=== PATIENT | male | born 1995 | race Caucasian/White ===

== ENCOUNTER 2023-03-30 18:46 | Emergency (ER) | payer SELFPAY ==
[~2023-03-30] VITALS: Ht 182.9 cm; Wt 72.7 kg
[~2023-03-30 18:46] MED LIST: EXCEDRIN; METH27TA19; SERT50TA19
[2023-03-30] MEDS ORDERED: CEPH-510 PO (19:36)
[2023-03-30 19:45] VITALS: BP 120/72
[2023-03-30] MEDS ORDERED: TETANUS-DIPTH-ACEL PERTUSSIS 0.5ML SYR Tdap IM ONE (19:45)
== END 2023-03-30 20:04 | disposition home or self-care (01) ==
LOC: ER 18:46
DX: S61.411A Laceration without foreign body of right hand, initial encounter (principal); Z79.899 Other long term (current) drug therapy; X58.XXXA Exposure to other specified factors, initial encounter; Y93.89 Activity, other specified; Y92.89 Other specified places as the place of occurrence of the external cause; Y99.8 Other external cause status
CPT/HCPCS: 12001; 90471; 90715

== ENCOUNTER 2024-09-12 07:23 | Emergency (ER) | payer MEDICAID, OTHER ==
[~2024-09-12] VITALS: Ht 180.3 cm; Wt 68.0 kg
[~2024-09-12 07:23] MED LIST changes: +CEPH-510 PO; +SERT-206; -SERT50TA19
[2024-09-12 07:55] VITALS: BP 135/98; PULSE 101; RESP 18; TEMP 97.7; O2SAT 97
[2024-09-12] MEDS ORDERED: IBUP-1454 PO (08:26)
[2024-09-12] MEDS ORDERED: CEPH500C PO (08:26)
== END 2024-09-12 08:33 | disposition home or self-care (01) ==
LOC: ER 07:23
DX: S90.422A Blister (nonthermal), left great toe, initial encounter (principal); Z79.899 Other long term (current) drug therapy; X58.XXXA Exposure to other specified factors, initial encounter; Y93.89 Activity, other specified; Y92.89 Other specified places as the place of occurrence of the external cause; Y99.8 Other external cause status
CPT/HCPCS: 10140; 10160; 73660

== ENCOUNTER 2025-04-19 20:48 | Inpatient (IN) | payer OTHER ==
[~2025-04-19] VITALS: Ht 180.3 cm; Wt 63.5 kg
[~2025-04-19 20:48] MED LIST changes: +CEPH500C PO; +IBUP-1454 PO
--- NOTE | 2025-04-19 21:20 | ED.PDOC ---
Altered Mental Status HPI Comments 29 y/o M is BIBA for substance overdose. Per EMS report, bystanders called after patient began becoming altered, characterized by decrease responsiveness, after smoking fentanyl with a methamphetamine pipe, earlier, this evening. On scene, patient was found with bystanders performing CPR on him. He was noted to have had agonal respirations and weak pulses prior to being given 4mg Narcan IN by EMS, with positive response. Upon arrival to ED, patient is reported to be alert and back to his usual baseline, with no associated symptoms endorsed. Chief Complaint: Overdose Time Seen by MD: 20:50 Primary Care Provider: none Reviewed Notes: Nurses Notes, Case Management Associate Notes, Medications, Allergies Allergies: Coded Allergies: NO KNOWN ALLERGIES (Unverified , 10/01/10) Home Meds Active Scripts Cephalexin Monohydrate (Cephalexin) 500 Mg Cap, 1 CAP PO BID, #21 CAP Prov:STARR DUBON 09/12/24 Ibuprofen (Ibuprofen) 600 Mg Tab, 1 TAB PO TID, #24 TAB Prov:STARR DUBON 09/12/24 Cephalexin ( Keflex 500) 500 Mg Cap, 1 CAP PO TID for 5 Days, #15 CAP 0 Refills Prov:KRISTINE BRANNON 03/30/23 Reported Medications [Rrdxbhkrjqifvor67 Mg] (METHYLPHENIDATE HCL ER) 27 MG TAB No Conflict Check, MG 04/05/13 [Sertraline Hcl50 Mg] (Sertraline Hcl) 50 MG TAB No Conflict Check, MG 04/05/13 [Excedrin] No Conflict Check 10/01/10 Information Source: Patient, Emergency Med Personnel Mode of Arrival: EMS Severity: Moderate Timing: Minutes Duration: Minutes Prehospital treatment: 12 Lead EKG, Radiator Repairer, Other (4mg narcan IN) Past Medical History PAST MEDICAL HISTORY: Denies Surgical History: Denies all surgeries Family History Family History: Reviewed,noncontributory to illness Social History Smoker: Non-Smoker Alcohol: Occasionally Drugs: Methamphetamine, Other (fentanyl) Lives In: Home All Other Systems: Reviewed and Negative (Comprehensive systems review obtained and negative except for what is stated in the HPI.) Physical Exam General Appearance: No Apparent Distress, Normal HEENT: Normal ENT Inspection, Pharynx Normal, TMs Normal Neck: Full Range of Motion, Non-Tender, Normal, Normal Inspection Respiratory: Chest Non-Tender, Lungs Clear, No Accessory Muscle Use, No Respiratory Distress, Normal Breath Sounds Cardiovascular: No Edema, No JVD, No Murmur, No Gallop, Normal Peripheral Pulses, Regular Rate/Rhythm Breast Exam: Deferred Gastrointestinal: No Organomegaly, Non Tender, No Pulsatile Mass, Normal Bowel Sounds, Soft Genitalia: Deferred Pelvic: Deferred Rectal: Deferred Extremities: No calf tenderness, Normal capillary refill, Normal inspection, Normal range of motion, Non-tender, No pedal edema Musculoskeletal : Apperance: Normal Neurologic: Alert, rn emergency II-XII nml as Tested, No Motor Deficits, Normal Affect, Normal Mood, No Sensory Deficits Cerebellar Function: Normal Reflexes: Normal Skin: Dry, Normal Color, Warm Lymphatic: No Adenopathy EKG EKG : Pulse Rate (adult): 114 [place]: Normal Cardiac Rhythm: ST Block: None Hypertrophy: None ST: Normal Was a procedure done? Was a procedure done?: No Differential Diagnosis (ALOC) Differential Diagnosis: Encephalopathy, Hypoxemia, Drug Overdose, ETOH Intoxication X-Ray, Labs, Meds, VS Vital Signs Date Time Temp Pulse Resp B/P (MAP) Pulse Ox O2 Delivery O2 Flow Rate FiO2 04/20/25 00:27 110 04/19/25 22:00 98.1 88 18 114/69 (84) 99 98.1 04/19/25 21:48 98.1 104 18 126/78 (94) 96 98.1 04/19/25 21:48 108 18 96 Room Air* 0 21 04/19/25 21:20 114 04/19/25 20:54 97.0 124 20 123/86 (98) 100 97.0 04/19/25 20:51 114 Lab Test 04/19/25 23:58 Range/Units White Blood Count 9.8 4.4-10.8 10^3/uL Red Blood Count 4.36 L 4.5-5.90 10^6/uL Hemoglobin 13.5 13.5-17.5 g/dL Hematocrit 38.6 L 41.0-53.0 % Mean Corpuscular Volume 88.6 80.0-100.0 fL Mean Corpuscular Hemoglobin 31.0 28.0-32.0 pg Mean Corpuscular Hemoglobin Concent 34.9 32.0-36.0 g/dL Red Cell Distribution Width 13.8 11.8-14.3 % Platelet Count 246 140-450 10^3/uL Mean Platelet Volume 7.8 6.9-10.8 fL Neutrophils (%) (Auto) 77.7 37.0-80.0 % Lymphocytes (%) (Auto) 12.1 10.0-50.0 % Monocytes (%) (Auto) 8.9 0.0-12.0 % Eosinophils (%) (Auto) 1.0 0.0-7.0 % Basophils (%) (Auto) 0.3 0.0-2.0 % Neutrophils # (Auto) 7.6 1.6-8.6 10 ^3/uL Lymphocytes # (Auto) 1.2 0.4-5.4 10 ^3/uL Monocytes # (Auto) 0.9 0-1.3 10 ^3/uL Eosinophils # (Auto) 0.1 0-0.8 10 ^3/uL Basophils # (Auto) 0 0-0.2 10 ^3/uL Nucleated Red Blood Cells 0.0 % Sodium Level 140 136-145 mmol/L Potassium Level 4.2 3.5-5.1 mmol/L Chloride Level 105 98-107 mmol/L Carbon Dioxide Level 30 20-31 mmol/L Anion Gap 5 5-15 Blood Urea Nitrogen 10 9-23 mg/dL Creatinine 1.05 0.700-1.30 mg/dL Glomerular Filtration Rate Calc 100 >90 mL/min BUN/Creatinine Ratio 9.5 L 10.0-20.0 Serum Glucose 119 H 74-106 mg/dL Calcium Level 9.6 8.7-10.4 mg/dL Troponin I High Sensitivity 176 *H </=54 ng/L Time of 1ST Reevaluation: 21:20 Reevaluation 1ST: Unchanged Patient Education/Counseling: Other (observation) Family Education/Counseling: No Family Present Additional Information Previous visits reviewed: September 12, 2024 The following tests were ordered, and results were reviewed by me: EKG Additional Information was gathered from interviewing the following independent historians: EMS I reviewed and agreed with the following test results read by other providers: N /A I discussed treatment and results with medical personnel and: patient Departure 1 Departure Time of Disposition: 00:58 (You presented with likely trigger for tests received CPR troponin is elevated. We will admit patient for further workup) Impression: Primary Impression: Drug overdose Qualified Codes: T50.901A - Poisoning by unspecified drugs, medicaments and biological substances, accidental (unintentional), initial encounter Additional Impression: Elevated troponin Disposition: ADMITTED INPATIENT Admit to: Med Surg Condition: Serious Critical Care Note Critical Care Time?: Yes Critical care comment: Overdose Authorized and Performed by: Gurmeet Diallo MD Total critical care time: Approximately 38 minutes Due to a high probability of clinically significant, life threatening deterioration, the patient required my highest level of preparedness to intervene emergently and I personally spent this critical care time directly and personally managing the patient. This critical care time included obtaining a history; examining the patient; pulse oximetry; ordering and review of studies; arranging urgent treatment with development of a management plan; evaluation of patient's response to treatment; frequent reassessment; and, discussions with other providers. This critical care time was performed to assess and manage the high probability of imminent, life-threatening deterioration that could result in multi-organ failure. It was exclusive of separately billable procedures and treating other patients and teaching time. Please see my other sections and the rest of the note for further information on patient assessment and treatment. Stability Stability form required: No Heart Score Heart Score: Heart Score Response (Comments) Value History N/A 0 EKG N/A 0 Age N/A 0 Risk Factors N/A 0 Troponin N/A 0 Total 0 I personally scribed for GURMEET DIALLO MD ([email or web address]) on 04/19/25 at 21:20. Electronically submitted by Stan Arreguin ([email or web address]). GURMEET DIALLO MD Apr 19, 2025 21:20
[2025-04-19 21:48] VITALS: PULSE 108; RESP 18; O2SAT 96
[2025-04-20 00:24] LABS: Chloride 105 mmol/L (98-107); Potassium 4.2 mmol/L (3.5-5.1); Sodium 140 mmol/L (136-145)
[2025-04-20 00:25] LABS: Anion Gap 5 (5-15); Calcium 9.6 mg/dL (8.7-10.4); Carbon Dioxide 30 mmol/L (20-31)
[2025-04-20 00:30] LABS: BUN/Creatinine Ratio 9.5 (10.0-20.0); Blood Urea Nitrogen 10 mg/dL (9-23); Glucose 119 mg/dL (74-106)
[2025-04-20 00:34] LABS: Basophils # (auto) 0 10 ^3/uL (0-0.2); Basophils % (auto) 0.3 % (0.0-2.0); Eosinophils # (auto) 0.1 10 ^3/uL (0-0.8); Hematocrit 38.6 % (41.0-53.0); Hemoglobin 13.5 g/dL (13.5-17.5); Lymphocytes # (auto) 1.2 10 ^3/uL (0.4-5.4); Lymphocytes % (auto) 12.1 % (10.0-50.0); Mean Corpuscular Hgb Conc. 34.9 g/dL (32.0-36.0); Mean Corpuscular Volume 88.6 fL (80.0-100.0); Monocytes # (auto) 0.9 10 ^3/uL (0-1.3); Monocytes % (auto) 8.9 % (0.0-12.0); Neutrophils # (auto) 7.6 10 ^3/uL (1.6-8.6); Neutrophils % (auto) 77.7 % (37.0-80.0); Platelet Count (auto) 246 10^3/uL (140-450); Red Blood Cells 4.36 10^6/uL (4.5-5.90); Red Cell Distribution Width 13.8 % (11.8-14.3); White Blood Cell 9.8 10^3/uL (4.4-10.8)
--- NOTE | 2025-04-20 00:50 | DVH ---
CHEST RADIOGRAPH Indication: overdose, s/p cpr Technique: Single frontal view of the chest was obtained COMPARISON: None FINDINGS: Lines and Tubes: None Lungs: Clear Pleura: No effusion. No pneumothorax. Cardiomediastinal contours: Unremarkable Bones: Unremarkable IMPRESSION: 1. No acute disease.
[2025-04-20] MEDS ORDERED: NITROGLYCERIN 0.4 MG SL TAB SL PRN (03:00)
[2025-04-20] MEDS ORDERED: ACETAMINOPHEN 325 MG TAB PO PRN (03:00)
[2025-04-20] MEDS ORDERED: MORPHINE SULFATE INJ 2 MG/ml SYRG IV PRN (03:00)
[2025-04-20] MEDS ORDERED: ONDANSETRON HCL 4 MG/2 ML VIAL IV PRN (03:00)
--- NOTE | 2025-04-20 04:33 | DVHHP2 ---
History of Present Illness Reason for Visit: Altered mental status History of Present Illness 29-year-old male presents for evaluation of altered mental status. Patient became unresponsive after smoking methamphetamine with fentanyl. CPR was started by bystanders. Patient is currently sit and lethargic. Denies chest pain or palpitations. No shortness a breath. Past Medical History Denies Past Surgical History Denies Family History Noncontributory Smoke: No ALCOHOL: occassional Drugs: Other (Methamphetamine, fentanyl) Review of Systems Review of Systems Review of systems are currently negative otherwise dressing HPI. Allergies: Coded Allergies: NO KNOWN ALLERGIES (Unverified , 10/01/10) Medications Current Medications Medications Dose Ordered Sig/Christiano Route Start Time Stop Time Status Last Admin Dose Admin Ondansetron HCl 4 mg Q4HP PRN IV 04/20/25 03:00 Acetaminophen 650 mg Q6HP PRN PO 04/20/25 03:00 Nitroglycerin 0.4 mg Q5MINP PRN SL 04/20/25 03:00 Morphine Sulfate 2 mg Q30M PRN IV 04/20/25 03:00 Exam Vital Signs Vital Signs Date Time Temp Pulse Resp B/P (MAP) Pulse Ox O2 Delivery O2 Flow Rate FiO2 04/20/25 04:00 83 04/20/25 03:09 98.2 18 120/79 (93) 96 98.2 04/19/25 21:48 Room Air* 0 21 Exam Gen: 29-year-old male in no apparent distress. Skin: Warm, dry, normal color and texture, no rash. HEENT: Normocephalic atraumatic, mucous membranes moist and pink. Neck: Cervical and supraclavicular nodes normal without enlargement, trachea is midline, thyroid gland is normal without masses. Pulmonary: Clear to auscultation and percussion bilaterally. Cardiac: Regular rate and rhythm. No murmur Abdomen: Soft, nontender, nondistended, bowel sounds present all 4 quadrants, no guarding, no rigidity, no organomegaly. Extremities: No cyanosis, clubbing, no edema Neuro: Cranial nerves II through XII grossly intact, normal affect and speech, no focal motor deficits. Labs/Xrays ORDERING PHYSICIAN: GURMEET VAZQUEZ MD PROCEDURE(s): CXRP - CHEST PORTABLE REASON: overdose, s/p cpr ORDER NUMBER(s): [id number], ACCESSION NUMBER(s): [id number] CHEST RADIOGRAPH Indication: overdose, s/p cpr Technique: Single frontal view of the chest was obtained COMPARISON: None FINDINGS: Lines and Tubes: None Lungs: Clear Pleura: No effusion. No pneumothorax. Cardiomediastinal contours: Unremarkable Bones: Unremarkable IMPRESSION: 1. No acute disease. Labs Test 04/20/25 02:50 04/19/25 23:58 Range/Units Troponin I High Sensitivity 223 *H </=54 ng/L White Blood Count 9.8 4.4-10.8 10^3/uL Red Blood Count 4.36 L 4.5-5.90 10^6/uL Hemoglobin 13.5 13.5-17.5 g/dL Hematocrit 38.6 L 41.0-53.0 % Mean Corpuscular Volume 88.6 80.0-100.0 fL Mean Corpuscular Hemoglobin 31.0 28.0-32.0 pg Mean Corpuscular Hemoglobin Concent 34.9 32.0-36.0 g/dL Red Cell Distribution Width 13.8 11.8-14.3 % Platelet Count 246 140-450 10^3/uL Mean Platelet Volume 7.8 6.9-10.8 fL Neutrophils (%) (Auto) 77.7 37.0-80.0 % Lymphocytes (%) (Auto) 12.1 10.0-50.0 % Monocytes (%) (Auto) 8.9 0.0-12.0 % Eosinophils (%) (Auto) 1.0 0.0-7.0 % Basophils (%) (Auto) 0.3 0.0-2.0 % Neutrophils # (Auto) 7.6 1.6-8.6 10 ^3/uL Lymphocytes # (Auto) 1.2 0.4-5.4 10 ^3/uL Monocytes # (Auto) 0.9 0-1.3 10 ^3/uL Eosinophils # (Auto) 0.1 0-0.8 10 ^3/uL Basophils # (Auto) 0 0-0.2 10 ^3/uL Nucleated Red Blood Cells 0.0 % Sodium Level 140 136-145 mmol/L Potassium Level 4.2 3.5-5.1 mmol/L Chloride Level 105 98-107 mmol/L Carbon Dioxide Level 30 20-31 mmol/L Anion Gap 5 5-15 Blood Urea Nitrogen 10 9-23 mg/dL Creatinine 1.05 0.700-1.30 mg/dL Glomerular Filtration Rate Calc 100 >90 mL/min BUN/Creatinine Ratio 9.5 L 10.0-20.0 Serum Glucose 119 H 74-106 mg/dL Calcium Level 9.6 8.7-10.4 mg/dL Assessment/Plan Assessment/Plan Assessment Toxic encephalopathy Drug overdose Elevated troponin, possible demand ischemia Plan Admit the patient to telemetry to the hospitalist Cardiology consultation Continue treatment per orders. Plan discussed with: Patient My Orders Orders - CYRIL ESTRELLA Procedure Category Date Status Time Drug Screen LAB 04/20/25 Logged 02:47 Regular Diet DIET 04/20/25 Transmitted Breakfast Basic Metabolic Panel LAB 04/21/25 Verified 04:00 Admit ADMIT 04/20/25 Transmitted 02:51 Ondansetron Hcl PHA 04/20/25 In Process (Zofran) 03:00 Condition: Stable YESSI 04/20/25 In Process 02:51 Acetaminophen Tablet PHA 04/20/25 In Process (Tylenol Tablet) 03:00 Bedrest With Bathroom YESSI 04/20/25 In Process Privileg 02:51 Nitroglycerin PHA 04/20/25 In Process Sublingual (Ntrostat 03:00 Morphine Sulfate PHA 04/20/25 In Process Injection 03:00 Stat Ekg For Chest YESSI 04/20/25 In Process Pain 02:51 Notify Md Of Changes YESSI 04/20/25 In Process From Base 02:51 Music Researcher For YESSI 04/20/25 In Process 24 Hours 02:51 Emergency Dysrhythmia YESSI 04/20/25 In Process Protocol 02:51 Rhythm Strips Once YESSI 04/20/25 In Process Every Shift 02:51 Oxygen By Nasal RT 04/20/25 Transmitted Cannula 02:51 Date of Service: Apr 20, 2025 Billing Provider: CYRIL ESTRELLA Common Visit Codes: [id number] INP/OBS CARE (HIGH) CYRIL ESTRELLA Apr 20, 2025 04:33
[2025-04-20 08:00] VITALS: PULSE 99; RESP 20; O2SAT 96
[2025-04-20] MEDS: ASPirin 81 mg TAB PO SCH (09:44)
[2025-04-20 09:48] LABS: Magnesium 1.7 mg/dL (1.6-2.6)
[2025-04-20 09:50] LABS: Blood Alcohol < 3.0 mg/dL (<10)
[2025-04-20 10:07] LABS: Salicylate < 3.0 mg/dL (-30)
--- NOTE | 2025-04-20 11:00 | DVHINCON2 ---
Date Seen: Apr 20, 2025 Referring Physician ZAK Barron Reason for Consultation Elevated trop History of Present Illness This is a 29-year-old man who presented to the emergency room via EMS with a chief complaint of drug overdose. At time of assessment the patient was found A&O x4 in company of friend who witnessed the event and mother. Per friend, he had just come back from the bathroom and found the patient slumped over standing by a car with obvious respiratory depression, subsequent agonal breathing, cyanosis, and respiratory arrest for which the patient called 911. At that time, he was instructed to initiate CPR which was delivered in between 2-5 min. Upon EMS arrival he was medicated with Narcan 4 mg with therapeutic response. Per patient, he consumed fentanyl x 3d straight and daily methamphetamines for two months. The patient denies any suicidal ideation. C/o of chest wall pain which is reproducible upon palpation. He underwent a 12 lead electrocardiogram revealing a sinus tachycardia rhythm at 114 bpm. Troponin levels peaked at 223 ng/L. Significant medical history includes ADHD, intermittent use of methamphetamine since 18 y.o., occasional cannabinoid and alcohol use. Past Medical History Past medical history reviewed. No other significant than mentioned above. Past Surgical History Left amblyopia correction Bilateral lower extremities (congenital) Family History Family history reviewed. Father with drug-induced cardiomyopathy and AICD. Social History See HPI. Allergies: Coded Allergies: NO KNOWN ALLERGIES (Unverified , 10/01/10) Home Meds Active Scripts Cephalexin Monohydrate (Cephalexin) 500 Mg Cap, 1 CAP PO BID, #21 CAP Prov:STARR DUBON 09/12/24 Ibuprofen (Ibuprofen) 600 Mg Tab, 1 TAB PO TID, #24 TAB Prov:STARR DUBON 09/12/24 Cephalexin ( Keflex 500) 500 Mg Cap, 1 CAP PO TID for 5 Days, #15 CAP 0 Refills Prov:KRISTINE BRANNON 03/30/23 Reported Medications [Cugwozffiwqidof31 Mg] (METHYLPHENIDATE HCL ER) 27 MG TAB No Conflict Check, MG 04/05/13 [Sertraline Hcl50 Mg] (Sertraline Hcl) 50 MG TAB No Conflict Check, MG 04/05/13 [Excedrin] No Conflict Check 10/01/10 Home Meds Home medications reviewed. Current Medications Current Medications Medications (Trade) Dose Ordered Sig/Christiano Route PRN Reason Start Time Stop Time Status Last Admin Ondansetron HCl (Zofran) 4 mg Q4HP PRN IV NAUSEA / VOMITING 04/20/25 03:00 Acetaminophen (Tylenol Tablet) 650 mg Q6HP PRN PO PAIN SCALE 1-3 OR TEMP>100.4 04/20/25 03:00 Nitroglycerin (Ntrostat Sublingual) 0.4 mg Q5MINP PRN SL FOR CHEST PAIN 04/20/25 03:00 Morphine Sulfate 2 mg Q30M PRN IV FOR CHEST PAIN 04/20/25 03:00 Aspirin 162 mg DAILY PO 04/20/25 10:00 04/20/25 09:44 Review of Systems Constitutional: No symptom reported Ears, Nose, & Throat: No symptom reported Eyes: No symptom reported Neurological: No symptoms reported Pulmonary/Respiratory: No symptom reported Cardiovascular: No symptom reported Gastrointestinal: No symptom reported Genitourinary: No symptom reported Musculoskeletal: Chest wall pain Skin: No symptom reported Psychiatric: No symptom reported Endocrine: No symptom reported Hemotologic/Lymphatic: No symptom reported Vital Signs Vital Signs Date Time Temp Pulse Resp B/P (MAP) Pulse Ox O2 Delivery O2 Flow Rate FiO2 04/20/25 08:00 99 20 96 Room Air* 0 21 04/20/25 08:00 98.2 116/81 (93) 98.2 Physical Exam General Appearance: Cooperative. Well developed. Well nourished. In no acute distress Head Exam: Normal inspection Neck Exam: Normal inspection. Non-tender. Normal alignment Pulmonary/Respiratory: Chest tender. Clear bilateral breath sounds Cardiovascular/Chest: Regular rate and rhythm. S1, S2. Sinus tachycardia. No murmurs. No JVD. Peripheral Pulses: 2+ Radial (R). 2+ Radial (L). 2+ Pedal (R). 2+ Pedal (L) Abdominal Exam: Normal bowel sounds. Soft. Nontender. No hepatospenomegaly. N o masses Ankle Exam: Negative ankle edema Lower extremities: Negative lower extremity edema Neuro/Mental Status: A&O x4. Coherent Thoughts/Psych: Normal thought pattern. Appropriate mood and affect. Appearance: In no acute distress Skin Exam: Normal inspection. Normal color. Warm. Dry Labs/Diagnostic Data Labs Test 04/20/25 09:21 04/19/25 23:58 Range/Units Magnesium Level 1.7 1.6-2.6 mg/dL Troponin I High Sensitivity 116 *H </=54 ng/L Salicylates Level < 3.0 -30 mg/dL Acetaminophen Level 2.0 L 10.0-20.0 UG/ML Plasma/Serum Blood Alcohol < 3.0 <10 mg/dL White Blood Count 9.8 4.4-10.8 10^3/uL Red Blood Count 4.36 L 4.5-5.90 10^6/uL Hemoglobin 13.5 13.5-17.5 g/dL Hematocrit 38.6 L 41.0-53.0 % Mean Corpuscular Volume 88.6 80.0-100.0 fL Mean Corpuscular Hemoglobin 31.0 28.0-32.0 pg Mean Corpuscular Hemoglobin Concent 34.9 32.0-36.0 g/dL Red Cell Distribution Width 13.8 11.8-14.3 % Platelet Count 246 140-450 10^3/uL Mean Platelet Volume 7.8 6.9-10.8 fL Neutrophils (%) (Auto) 77.7 37.0-80.0 % Lymphocytes (%) (Auto) 12.1 10.0-50.0 % Monocytes (%) (Auto) 8.9 0.0-12.0 % Eosinophils (%) (Auto) 1.0 0.0-7.0 % Basophils (%) (Auto) 0.3 0.0-2.0 % Neutrophils # (Auto) 7.6 1.6-8.6 10 ^3/uL Lymphocytes # (Auto) 1.2 0.4-5.4 10 ^3/uL Monocytes # (Auto) 0.9 0-1.3 10 ^3/uL Eosinophils # (Auto) 0.1 0-0.8 10 ^3/uL Basophils # (Auto) 0 0-0.2 10 ^3/uL Nucleated Red Blood Cells 0.0 % Sodium Level 140 136-145 mmol/L Potassium Level 4.2 3.5-5.1 mmol/L Chloride Level 105 98-107 mmol/L Carbon Dioxide Level 30 20-31 mmol/L Anion Gap 5 5-15 Blood Urea Nitrogen 10 9-23 mg/dL Creatinine 1.05 0.700-1.30 mg/dL Glomerular Filtration Rate Calc 100 >90 mL/min BUN/Creatinine Ratio 9.5 L 10.0-20.0 Serum Glucose 119 H 74-106 mg/dL Calcium Level 9.6 8.7-10.4 mg/dL Assessment Opioid/methamphetamine overdose Opioid associated acute hypoxemic respiratory arrest NSTEMI Type II secondary to above ADHD Polysubstance abuse Plan/Recommendation (Dr. Brambila) NSTEMI Type II secondary to drug overdose and respiratory arrest. We will continue further cardiac evaluation to rule out structural heart disease. He was strongly counseled on drug abuse cessation. Consider a health care social worker consultation for drug recovery resources. UDS pending at this time. In the setting of an unremarkable echocardiogram, there is no further cardiac work-up indicated at this time. Thank you for allowing us to participate in this patient's care. Please call if you have any questions or concerns. This medical document was created using an electronic medical record system with voice recognition software and computerized dictation system. Although this document has been carefully reviewed, there might still be some phonetic and typographical errors. Occasional wrong-word or ``sound-alike substitutions may have occurred due to the inherent limitations of voice recognition software. These areas are purely typographical due to imperfections of the software programs and do not reflect any compromise in the patient's medical care. Pl ease read the chart carefully and recognize, using context, where these substitutions have occurred. Plan discussed with: Patient, Other (mother, friend) NYHA Physical activity limitations: NA Date of Service: Apr 20, 2025 Billing Provider: CHARISSE RAMOS Cardiology Common Codes: [id number] INP/OBS CARE (High) CHARISSE RAMOS Apr 20, 2025 11:00
[2025-04-20 11:16] LABS: Barbiturate Scree,Urine Neg (NEGATIVE); Opiate Scree,Urine Pos (NEGATIVE)
[2025-04-20 11:23] LABS: Amphetamine Screen, Urine Pos (NEGATIVE); Benzodiazephine Screen, Urine Neg (NEGATIVE); Cannabinoid Screen, Urine Neg (NEGATIVE); Cocaine Screen, Urine Neg (NEGATIVE); Phencyclidine Screen, Urine Neg (NEGATIVE)
[2025-04-20] MEDS: MAGNESIUM SULFATE 1GM/100ML 100 ML IV ONE (12:05)
[2025-04-20 17:00] VITALS: BP 111/69; PULSE 111; RESP 14; TEMP 98; O2SAT 97
--- NOTE | 2025-04-20 17:19 | DVHDS2 ---
Discharge Summary Date of Admission Apr 20, 2025 at 02:51 Date of Discharge: Apr 20, 2025 Labs/Diagnostic Data: Laboratory Results Test 04/20/25 10:14 04/20/25 09:21 04/19/25 23:58 Urine Opiates Screen Pos (NEGATIVE) Urine Fentanyl Screen Pos (NEGATIVE) Urine Barbiturates Screen Neg (NEGATIVE) Urine Phencyclidine Screen Neg (NEGATIVE) Urine Amphetamines Screen Pos (NEGATIVE) Urine Benzodiazepines Screen Neg (NEGATIVE) Urine Cocaine Screen Neg (NEGATIVE) Urine Cannabinoids Screen Neg (NEGATIVE) Magnesium Level 1.7 mg/dL (1.6-2.6) Troponin I High Sensitivity 116 ng/L (</=54) Salicylates Level < 3.0 mg/dL (-30) Acetaminophen Level 2.0 UG/ML (10.0-20.0) Plasma/Serum Blood Alcohol < 3.0 mg/dL (<10) White Blood Count 9.8 10^3/uL (4.4-10.8) Red Blood Count 4.36 10^6/uL (4.5-5.90) Hemoglobin 13.5 g/dL (13.5-17.5) Hematocrit 38.6 % (41.0-53.0) Mean Corpuscular Volume 88.6 fL (80.0-100.0) Mean Corpuscular Hemoglobin 31.0 pg (28.0-32.0) Mean Corpuscular Hemoglobin Concent 34.9 g/dL (32.0-36.0) Red Cell Distribution Width 13.8 % (11.8-14.3) Platelet Count 246 10^3/uL (140-450) Mean Platelet Volume 7.8 fL (6.9-10.8) Neutrophils (%) (Auto) 77.7 % (37.0-80.0) Lymphocytes (%) (Auto) 12.1 % (10.0-50.0) Monocytes (%) (Auto) 8.9 % (0.0-12.0) Eosinophils (%) (Auto) 1.0 % (0.0-7.0) Basophils (%) (Auto) 0.3 % (0.0-2.0) Neutrophils # (Auto) 7.6 10 ^3/uL (1.6-8.6) Lymphocytes # (Auto) 1.2 10 ^3/uL (0.4-5.4) Monocytes # (Auto) 0.9 10 ^3/uL (0-1.3) Eosinophils # (Auto) 0.1 10 ^3/uL (0-0.8) Basophils # (Auto) 0 10 ^3/uL (0-0.2) Nucleated Red Blood Cells 0.0 % Sodium Level 140 mmol/L (136-145) Potassium Level 4.2 mmol/L (3.5-5.1) Chloride Level 105 mmol/L (98-107) Carbon Dioxide Level 30 mmol/L (20-31) Anion Gap 5 (5-15) Blood Urea Nitrogen 10 mg/dL (9-23) Creatinine 1.05 mg/dL (0.700-1.30) Glomerular Filtration Rate Calc 100 mL/min (>90) BUN/Creatinine Ratio 9.5 (10.0-20.0) Serum Glucose 119 mg/dL (74-106) Calcium Level 9.6 mg/dL (8.7-10.4) Other Laboratory Tests 04/19/25 23:58 Brief Hx & Hospital Course: This is a 29-year-old man who presented to the emergency room via EMS with a chief complaint of drug overdose. At time of assessment the patient was found A&O x4 in company of friend who witnessed the event and mother. Per friend, he had just come back from the bathroom and found the patient slumped over standing by a car with obvious respiratory depression, subsequent agonal breathing, cyanosis, and respiratory arrest for which the patient called 911. At that time, he was instructed to initiate CPR which was delivered in between 2-5 min. Upon EMS arrival he was medicated with Narcan 4 mg with therapeutic response. Per patient, he consumed fentanyl x 3d straight and daily methamphetamines for two months. The patient denies any suicidal ideation. C/o of chest wall pain which is reproducible upon palpation. He underwent a 12 lead electrocardiogram revealing a sinus tachycardia rhythm at 114 bpm. Troponin levels peaked at 223 ng/L. Patient left AMA Condition at Discharge: Poor Final Diagnosis/Problems List Opioid/methamphetamine overdose Opioid associated acute hypoxemic respiratory arrest NSTEMI Type II secondary to above ADHD Polysubstance abuse Discharge Disposition: AMA Discharge Statement: "Patient was advised to return to the ER or call 911 if any headaches, dizziness, shortness of breath, chest pain, abdominal pain, bleeding, fevers, or worsening of medical condition. Patient was counseled about treatment plan, medications, possible side effects, patientverbalized understanding. All questions were answered to the best of my ability. This discharge took greater then 30 minutes in planning, reviewing documentation, counseling the patient, and discussing with other team members." ASSESSMENT ASSESSMENT Assessment Date of Service: Apr 20, 2025 Billing Provider: MANJU RIBEIRO MD Common Visit Codes: 78885-VAY/OBS DISCH DAY <30MIN MANJU RIBEIRO MD Apr 20, 2025 17:19
--- NOTE | 2025-04-21 13:02 | DVHSR ---
APPROVED REPORT EXAM: Two-dimensional and M-mode echocardiogram with Doppler and color Doppler. Blood Pressure: 116/81 mmHg INDICATION Elevated Trops RISK FACTORS Height: 70, Weight: 139 DIMENSIONS LVDd4.6 (3.8-5.7cm)LA (2D)4.0 (1.9-4.0cm)Aortic Root4.1 (2.0-3.7cm) LVDs3.3 (2.5-4.0cm)LA (MM) (1.9-4.0cm)Aortic Cusp Exc2.3 (1.5-2.0cm) EF (%) 55.0 (55-70%)Rt. Atrium4.2 (1.9-4.0cm)Asc. Aorta2.9 cm IVSd1.0 (0.7-1.1cm)RV (D) (1.8-2.4cm) PWd1.1 (0.7-1.1cm) Mitral Valve MitralMitral Stenosis E wave0.79m/sMV Mean GR.mmHg A wave0.73m/sMV Peak GR.mmHg E/A ratio1.12D MVAcm2 DECEL [id number] 1/2 [id number] IVRTmsDop MVA5.81cm2 Aortic Valve Aortic ValveAortic Stenosis V11.01m/Arias Mean GR.3mmHg V21.10m/Arias Peak GR.5mmHg LVOT Diameter2.2 (1.8-2.4cm)Doppler AVA3.49cm2 Pulmonic Valve V20.78m/s Tricuspid Valve TR Velocity2.53m/s [id number] Conclusion lvef 55% by visual estimate dilated LV cavity mild myxomatuous Mitral valve no severe regurg noted however normal rv function normal atria no severe valve abnormaliteis noted
--- NOTE | 2025-04-21 13:18 | ECG ---
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
== END 2025-04-20 17:14 | disposition left against medical advice (07) | DRG 917 ==
LOC: EDBD 20:48 → ER 20:54 → OVERFLOW 04-20 02:51
PROVIDERS: ADMIT Internal Medicine; ATTEND Internal Medicine
PROC: 5A12012 Performance of Cardiac Output, Single, Manual (ICD-10-PCS; principal; 2025-04-19)
DX: T43.651A Poisoning by methamphetamines accidental (unintentional), initial encounter (principal); G92.9 Unspecified toxic encephalopathy; I21.A1 Myocardial infarction type 2; R09.2 Respiratory arrest; F90.9 Attention-deficit hyperactivity disorder, unspecified type; F19.10 Other psychoactive substance abuse, uncomplicated; Z53.29 Procedure and treatment not carried out because of patient's decision for other reasons; T40.2X1A Poisoning by other opioids, accidental (unintentional), initial encounter; Y92.89 Other specified places as the place of occurrence of the external cause; Z79.899 Other long term (current) drug therapy
CPT/HCPCS: 36415; 80048; 80307; 80320; 80329; 83735; 84484; 85025; 93306; 99291; G0378

== ENCOUNTER 2025-06-02 19:04 | Emergency (ER) | payer OTHER ==
[~2025-06-02] VITALS: Ht 182.9 cm; Wt 77.5 kg
[2025-06-02 19:04] VITALS: BP 147/94; RESP 20; TEMP 97.9; O2SAT 97
[2025-06-02 19:24] VITALS: PULSE 102
[2025-06-02] MEDS ORDERED: KETOROLAC TROMETH 60MG/2ML VIAL IM ONE (19:45)
[2025-06-02] MEDS ORDERED: HYDROcodone-ACET 5/325MG TAB PO ONE (19:45)
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
[2025-06-02 20:24] LABS: Hematocrit 44.5 % (41.0-53.0); Hemoglobin 15.3 g/dL (13.5-17.5); Mean Corpuscular Hemoglobin 30.5 pg (28.0-32.0); Mean Corpuscular Volume 88.8 fL (80.0-100.0); Nucleated Red Blood Cells % 0.0 %
[2025-06-02 20:43] LABS: Alkaline Phosphatase 74 U/L (46-116); Anion Gap 7 (5-15); BUN/Creatinine Ratio 10.1 (10.0-20.0); Blood Urea Nitrogen 10 mg/dL (9-23); Carbon Dioxide 27 mmol/L (20-31); Chloride 107 mmol/L (98-107); Glucose 94 mg/dL (74-106); Potassium 4.2 mmol/L (3.5-5.1); Sodium 141 mmol/L (136-145); Total Protein 7.5 g/dL (5.7-8.2)
[2025-06-02 20:44] LABS: Alanine Aminotransferase 46 U/L (7-40); Albumin 5.0 g/dL (3.2-4.8); Bilirubin, Total 0.6 mg/dL (0.2-1.0); Calcium 11.2 mg/dL (8.7-10.4)
--- NOTE | 2025-06-03 06:36 | ECG ---
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
== END 2025-06-02 23:20 | disposition home or self-care (01) ==
LOC: ER 19:04
DX: S13.4XXA Sprain of ligaments of cervical spine, initial encounter (principal); S80.01XA Contusion of right knee, initial encounter; S80.11XA Contusion of right lower leg, initial encounter; R55 Syncope and collapse; V89.2XXA Person injured in unspecified motor-vehicle accident, traffic, initial encounter; Y93.89 Activity, other specified; Y92.410 Unspecified street and highway as the place of occurrence of the external cause; Y99.8 Other external cause status
CPT/HCPCS: 36415; 70450; 72040; 73562; 80053; 84484; 85025; 93005